=== PATIENT | male | born 1955 | race Caucasian/White ===

== ENCOUNTER → 2021-06-26 13:29 | Outpatient (BNVA) | payer SELFPAY | PROVIDERS: Visit Provider Nurse Practitioner Family | DX: M79.605 Pain in left leg (principal); M25.572 Pain in left ankle and joints of left foot | CPT/HCPCS: 73590; 73610 ==

== ENCOUNTER → 2021-07-21 11:30 | Outpatient (BNVA) | payer SELFPAY | PROVIDERS: Visit Provider Podiatrist Foot & Ankle Surgery | DX: S82.832D Other fracture of upper and lower end of left fibula, subsequent encounter for closed fracture with routine healing (principal); W00.0XXD Fall on same level due to ice and snow, subsequent encounter | CPT/HCPCS: 73610 ==

== ENCOUNTER → 2022-03-30 08:29 | Outpatient (BNVA) | payer MEDICARE, SELFPAY | PROVIDERS: PCP Family Medicine; Visit Provider Podiatrist Foot & Ankle Surgery | DX: M20.41 Other hammer toe(s) (acquired), right foot (principal) | CPT/HCPCS: 73630; 99214 ==

== ENCOUNTER 2022-10-09 06:00 | Outpatient (RCR) | payer MEDICARE, SELFPAY | END 2022-10-14 23:59 | disposition home or self-care (01) | LOC: GPT 06:00 | PROVIDERS: Visit Provider Orthopaedic Surgery | DX: Z47.89 Encounter for other orthopedic aftercare (principal) | CPT/HCPCS: 97110; 97161; 97530 ==

== ENCOUNTER 2022-10-15 06:00 | Outpatient (RCR) | payer MEDICARE, SELFPAY | END 2022-11-13 23:59 | disposition home or self-care (01) | LOC: GPT 06:00 | PROVIDERS: Visit Provider Orthopaedic Surgery | DX: Z96.611 Presence of right artificial shoulder joint (principal) | CPT/HCPCS: 97110; 97112; 97140; 97530 ==

== ENCOUNTER 2022-11-14 06:00 | Outpatient (RCR) | payer MEDICARE, SELFPAY | END 2022-12-14 23:59 | disposition home or self-care (01) | LOC: GPT 06:00 | PROVIDERS: Visit Provider Orthopaedic Surgery | DX: Z48.89 Encounter for other specified surgical aftercare (principal); Z96.611 Presence of right artificial shoulder joint | CPT/HCPCS: 97110; 97112; 97140; 97530 ==

== ENCOUNTER 2022-12-15 06:00 | Outpatient (RCR) | payer MEDICARE, SELFPAY | END 2023-01-14 23:59 | disposition home or self-care (01) | LOC: GPT 06:00 | PROVIDERS: Visit Provider Orthopaedic Surgery | DX: Z47.1 Aftercare following joint replacement surgery (principal); Z96.611 Presence of right artificial shoulder joint | CPT/HCPCS: 97110; 97112; 97530 ==

== ENCOUNTER → 2023-03-01 11:33 | Outpatient (BNVA) | payer MEDICARE, SELFPAY | PROVIDERS: Visit Provider Podiatrist Foot & Ankle Surgery | DX: M20.41 Other hammer toe(s) (acquired), right foot | CPT/HCPCS: 99214 ==

== ENCOUNTER → 2023-03-19 05:49 | Day surgery (SDC) | payer MEDICARE, SELFPAY ==
[2023-03-19 06:32] VITALS: BP 119/88; PULSE 94; RESP 16; TEMP 36.1; O2SAT 98; BMI 31.0
[2023-03-19] MEDS: sodium chloride 0.9% 1,000 ML 30 ML IV (06:54)
--- NOTE | 2023-03-19 07:05 | W.PM.OPSUD ---
Surgery/Procedure H&P Update DATE OF PROCEDURE: March 19, 2023 DATE H&P PERFORMED: 03/01/23 H&P UPDATE INFORMATION: I have reviewed H&P completed within last 30 days, I have examined patient prior to procedure, No changes to prior documentation and H&[place] is in [facility] [place] on date indicated PREOP DIAGNOSIS: Right second and third hammertoe PLANNED PROCEDURE: Operation Date: 03/19/23 08:20 Proposed Procedures p Right foot flexor tendon transfer,90843,58469,64899,m79.671,m20.41,m24.574(Right) - Suraj Copeland DPM s Right second hammertoe correction with arthrodesis and Right third hammertoe correction with arthrodesis.(Right) - Suraj Copeland DPM
--- NOTE | 2023-03-19 07:36 | P.ANESASSM_ITS ---
Pre-Anesthetic Assessment Height/Weight: Height 1.7 m Weight 89.811 kg Temp Pulse Resp BP Pulse Ox O2 Del Method 97.0 F L 94 16 119/88 98 Room Air 03/19/23 06:32 03/19/23 06:32 03/19/23 06:32 03/19/23 06:32 03/19/23 06:32 03/19/23 06:32 Preop Diagnosis: Right second and third hammertoe Operation Date: 03/19/23 08:20 Proposed Procedures p Right foot flexor tendon transfer,71016,47437,74940,m79.671,m20.41,m2 4.574(Right) - Suraj Copeland DPM s Right second hammertoe correction with arthrodesis and Right third hammertoe correction with arthrodesis.(Right) - Suraj Copeland DPM Familial anesthetic complications: PONV Was Beta Rakan taken within 24 hours: Yes Was Clonidine taken within 24 hours: N/A Last intake: Intake Last Liquid Date 03/18/23 Last Liquid Time 21:00 Last Solid Date 03/18/23 Last Solid Time 21:00 Social No alcohol and No tobacco Exam alert, oriented x 3, clear to auscultation bilaterally and regular rate & rhythm Airway Mallampati: Class I Dentition: full CV/HEM Congestive Heart Failure (4 years ago, no issues since, no chest pain episodes, able to Achieve > 4 METS w/ out symptoms) Anesthetic Plan ASA status: 3 Anesthesia: MAC Risk of > 500 ml blood loss (7ml/kg in children): No Medications/Allergies Home Medications Medication Instructions Recorded Confirmed Last Taken Type carvedilol 6.25 mg tablet 6.25 mg PO BID 06/26/21 03/18/23 03/18/23 History furosemide 20 mg tablet 40 mg PO DAILY 06/26/21 03/18/23 03/18/23 History isosorbide mononitrate 30 mg 30 mg PO DAILY 06/26/21 03/18/23 03/18/23 History tablet,extended release 24 hr potassium chloride 10 mEq 10 meq PO DAILY 06/26/21 03/18/23 03/18/23 History tablet,extended release albuterol sulfate 90 mcg/actuation 90 mcg inhalation PRN PRN 03/18/23 03/18/23 Unknown History aerosol inhaler Shortness Of Breath Or Wheezing Allergies Allergy/AdvReac Type Severity Reaction Status Date / Time No Known Allergies Allergy Verified 03/19/23 06:30 Current Medications Generic Name Dose Route Start Last Admin Trade Name Micha PRN Reason Stop Dose Admin Sodium Chloride 1,000 mls @ 30 mls/hr 03/19/23 06:30 03/19/23 06:54 Sodium Chloride 0.9% IV 03/20/23 06:29 30 mls/hr .Q24H LULA Administration PFSH Anesthesia Family History Mother CAD (coronary artery disease) Father CAD (coronary artery disease) Social History Alcohol intake: never Substance/Drug Use: never Data Anesthesia 03/19/23 06:55 BMP 03/19/23 06:55 Sodium Cancelled Potassium Cancelled Chloride Cancelled Carbon Dioxide Cancelled BUN Cancelled Creatinine Cancelled Glucose Cancelled Calcium Cancelled Cardiac Studies: No Data to Display
--- NOTE | 2023-03-19 07:46 | ECG_ITS ---
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 Measurements Intervals [place] Rate: 119 P: 0 [place]: 0 QRS: -21 QRSD: 89 T: 42 QT: 336 QTc: 473 Interpretive Statements ATRIAL FIBRILLATION WITH RAPID VENTRICULAR RESPONSE BORDERLINE LEFT AXIS DEVIATION [QRS AXIS < -20] ABNORMAL RHYTHM ECG No previous ECG available for comparison Electronically Signed On 03-19-2023 8:36:18 CDT by Magy Sandoval M.D. [email or web address]y hospitals parma medical centerTrapeze Networks/store/[id number]
[2023-03-19 08:07] LABS: Anion Gap 12.7 (5-19); Blood Urea Nitrogen 26 mg/dL (8-23); Calcium 8.7 mg/dL (8.5-10.5); Carbon Dioxide 29 mmol/L (22-29); Chloride 103 mmol/L (98-107); Glucose 105 mg/dL (65-115); Osmolality Calculated 295 mOsm/kg (285-295); Potassium 4.7 mmol/L (3.5-5.1); Sodium 140 mmol/L (136-145)
--- NOTE | 2023-03-19 08:23 | ECG_ITS ---
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 Measurements Intervals [place] Rate: 84 P: 0 [place]: 0 QRS: -30 QRSD: 80 T: -10 QT: 349 QTc: 414 Interpretive Statements ATRIAL FIBRILLATION INFERIOR MYOCARDIAL INFARCTION , PROBABLY OLD [40+ ms Q WAVE AND/OR ST/T ABNORMALITY IN II/aVF] Compared to ECG 03/19/2023 07:46:22 Myocardial infarct finding now present Electronically Signed On 03-19-2023 8:37:06 CDT by Magy Sandoval M.D. [email or web address] Pawnmerit health rankinMagneGas Corporationdiley ridge medical center.PictureMenu/store/[id number]
--- NOTE | 2023-03-19 08:55 | PC.NURSE ---
after Ekg obtained Dr. Lopez talked with heart doctor and has decided to hold off on surgery today until patient is able to see economic development coordinator for release. Dr. Copeland and Dr. Lopez both explained situation to patient. Patient and family understood and will be making an appt for the economic development coordinator.
== END ==
PROVIDERS: PCP Family Medicine; Visit Provider Podiatrist Foot & Ankle Surgery
PROC: (CPT 28285; 2023-03-19 08:10)
DX: M20.41 Other hammer toe(s) (acquired), right foot (principal); Z53.8 Procedure and treatment not carried out for other reasons
CPT/HCPCS: 36415; 80048; 93005; J2704; J3010; J7030

== ENCOUNTER → 2023-04-07 10:19 | Outpatient (BNVA) | payer MEDICARE, SELFPAY | PROVIDERS: PCP Family Medicine; Referring Provider Podiatrist Foot & Ankle Surgery; Visit Provider Internal Medicine Cardiovascular Disease | DX: Z01.818 Encounter for other preprocedural examination (principal); M20.41 Other hammer toe(s) (acquired), right foot; I11.0 Hypertensive heart disease with heart failure; I50.9 Heart failure, unspecified; I48.91 Unspecified atrial fibrillation; Z79.01 Long term (current) use of anticoagulants | CPT/HCPCS: 99204 ==

== ENCOUNTER 2023-04-13 09:45 | Outpatient (CLI) | payer MEDICARE, SELFPAY ==
--- NOTE | 2023-04-13 10:00 | USCV_ITS ---
Amrit Tomlin Age: 68 Gender: M : 1955 Exam Date: 04/13/2023 09:59 Ordering Phys: Magy Sandoval MD ([email or web address]) Technologist: Laurie Carrillo [place] [facility] [place]: FAIRLY NEW ONSET AFIB BP: 130 / 90 HR: 112 Rhythm: Atrial fibrillation Technical Quality: Adequate MEASUREMENTS (Male / Female) Normal Values 2D ECHO LV Diastolic Diameter PLAX 4.0 cm 4.2 - 5.9 / 3.9 - 5.3 cm LV Systolic Diameter PLAX 3.2 cm LV Chamber Size 4.8 cm IVS Diastolic Thickness 1.0 cm 0.6 - 1.0 / 0.6 - 0.9 cm IVS Systolic Thickness 1.5 cm LVPW Diastolic Thickness 1.6 cm 0.6 - 1.0 / 0.6 - 0.9 cm LVPW Systolic Thickness 1.6 cm RV Chamber Size 4.2 cm LVOT Diameter 2.0 cm LV Ejection Fraction 2D Teich 41.7 % LV Ejection Fraction MOD 2C 49.9 % LV Ejection Fraction 2C AL 51.3 % LA Diameter 4.5 cm LA Width 4.8 cm LA Height 5.1 cm RA Width 5.0 cm RA Height 5.5 cm Aorta at Sinotubular Diameter 3.5 cm IVC Diameter 1.4 cm M-MODE Aortic Annulus Diameter 3.9 cm LA Ao Ratio MM 1.2 MV E Point Septal Separation 1.1 cm DOPPLER AV Peak Velocity 97.0 cm/s LVOT Peak Velocity 54.7 cm/s AV Area Cont Eq vti 1.8 cm squared AV Area Cont Eq pk 1.8 cm squared MV Area PHT 5.0 cm squared MV E' Velocity 53.5 cm/s Mitral E to MV E' Ratio 6.9 Mitral E to LV E' Lateral Ratio 6.3 Mitral E to LV E' Septal Ratio 7.7 TR Peak Velocity 213.7 cm/s TR Peak Gradient 18.3 mmHg TR Mean Velocity 175.9 cm/s TR Mean Gradient 14.0 mmHg TR Velocity Time Integral 60.9 cm TV Peak E Velocity 46.0 cm/s Right Atrial Pressure 3.0 mmHg Pulmonary Artery Systolic Pressu 21.3 mmHg RV Acceleration Time 0.1 s RV Ejection Time 0.4 s RV AcT/ET 0.3 FINDINGS Left Ventricle Normal left ventricular size, systolic function and wall thickness, with no regional wall motion abnormalities. Left ventricular ejection fraction is estimated at 55 %. Diastolic dysfunction was not assessed due to atrial fibrillation. Right Ventricle Normal right ventricular size and systolic function. Right Atrium Normal right atrial size. Left Atrium Moderately dilated Mitral Valve Structurally normal mitral valve. There is a moderate mitral regurgitation with central jet. Aortic Valve Thickened aortic valve. No aortic valve stenosis. Trace aortic valve regurgitation. Tricuspid Valve Structurally normal tricuspid valve. Trace tricuspid valve regurgitation. Pulmonic Valve Pulmonic valve not well visualized. Trace pulmonary valve regurgitation. Pericardium No pericardial effusion. Aorta Normal size aortic root and proximal ascending aorta. IVC Normal IVC dimension with >50% respiratory change of the inferior vena cava. CONCLUSIONS Atrial fibrillation during the study. Normal left ventricle function. No LVH. Estimated LVEF normal at 55%. Moderate mitral regurgitation with a central jet. Normal right heart and pulmonary pressure. David Edgar MD (Electronically Signed) Final Date: 13 April 2023 15:16 S
== END 2023-04-13 09:46 | disposition home or self-care (01) ==
PROVIDERS: PCP Family Medicine; Visit Provider Internal Medicine Cardiovascular Disease
DX: Z01.818 Encounter for other preprocedural examination (principal); I48.91 Unspecified atrial fibrillation; I50.9 Heart failure, unspecified; I34.0 Nonrheumatic mitral (valve) insufficiency
CPT/HCPCS: 93306; 99204

== ENCOUNTER → 2023-05-19 13:22 | Outpatient (BNVA) | payer MEDICARE, SELFPAY | PROVIDERS: PCP Family Medicine; Visit Provider Podiatrist Foot & Ankle Surgery | DX: Z01.818 Encounter for other preprocedural examination (principal); M79.671 Pain in right foot; M20.41 Other hammer toe(s) (acquired), right foot | CPT/HCPCS: 99213 ==

== ENCOUNTER 2023-05-28 06:23 | Day surgery (SDC) | payer MEDICARE, SELFPAY ==
[2023-05-28] VITALS (7 sets, daily range): BP systolic 94–110; BP diastolic 65–86; PULSE 70–90; RESP 15–18; TEMP 36.1–36.4; O2SAT 96–98; BMI 31.0
--- NOTE | 2023-05-28 | XR_ITS ---
WS: [id number] Exam: XR foot RT 2V [id number] Date/Time of Exam: 05/28/2023 12:00 AM Reason For Exam: OR PICS Intraoperative AP and lateral images of the RIGHT toes are submitted. Surgical wires overlie the long axis of the second and third digits. Images were were obtained for in traoperative purposes.
--- NOTE | 2023-05-28 06:30 | ECG_ITS ---
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 Measurements Intervals [place] Rate: 89 P: 0 [place]: 0 QRS: -26 QRSD: 89 T: 27 QT: 383 QTc: 468 Interpretive Statements ATRIAL FIBRILLATION BORDERLINE LEFT AXIS DEVIATION [QRS AXIS < -20] ABNORMAL RHYTHM ECG Compared to ECG 03/19/2023 08:23:52 Myocardial infarct finding no longer present Electronically Signed On 05-28-2023 13:49:17 ORACLE MANAGER by Bronson Brady M.D. [email or web address]'s hospital of columbusWorkThink/store/[id number]
[2023-05-28] MEDS: scopolamine 1.5 Patch 1 PATCH TRANSDERMA (07:11)
[2023-05-28] MEDS: sodium chloride 0.9% 1,000 ML 30 ML IV (07:16)
--- NOTE | 2023-05-28 07:19 | ANES.PREANE2 ---
Pre-Anesthetic Assessment Height/Weight: Height 1.7 m Weight 89.811 kg Temp Pulse Resp BP Pulse Ox O2 Del Method 97 F L 87 18 100/80 97 Room Air 05/28/23 06:44 05/28/23 06:44 05/28/23 06:44 05/28/23 06:44 05/28/23 06:44 05/28/23 06:53 Preop Diagnosis: Right second and third hammertoe deformity Operation Date: 05/28/23 08:05 Proposed Procedures p Deep tendon transfer right foot and Right second hammertoe correction 07942,24681,M79.671,M20.41(Right) - Suraj Copeland DPM s Hammertoe Correction(Right) - Suraj Copeland DPM Last intake: Intake Last Liquid Date 05/27/23 Last Liquid Time 22:30 Last Solid Date 05/27/23 Last Solid Time 22:30 Social Tobacco (2 cig/day) Exam alert, oriented x 3 and clear to auscultation bilaterally Heart is irregular with no other ausculatated findings Airway Submandibular: within normal limits Cervical ROM: within normal limits Mallampati: Class II Pulmonary Chronic Obstructive Pulmonary Disease CV/HEM Atrial Fibrillation, Arrythmia, Congestive Heart Failure and Hypertension GI None reported Metabolic None reported Neuropsych None reported Anesthetic Plan ASA status: 3 Anesthesia: General Medications/Allergies Home Medications Medication Instructions Recorded Confirmed Last Taken Type isosorbide mononitrate 30 mg 30 mg PO DAILY 06/26/21 05/27/23 05/27/23 History tablet,extended release 24 hr potassium chloride 10 mEq 10 meq PO DAILY 06/26/21 05/27/23 05/27/23 History tablet,extended release albuterol sulfate 90 mcg/actuation 90 mcg inhalation PRN PRN 03/18/23 05/27/23 05/25/23 History aerosol inhaler Shortness Of Breath Or Wheezing apixaban 5 mg tablet (Eliquis) 5 mg PO BID #60 tabs 04/07/23 05/27/23 05/23/23 Rx carvedilol 12.5 mg tablet 12.5 mg PO BID #180 tabs 04/07/23 05/27/23 05/28/23 Rx furosemide 40 mg tablet 40 mg PO DAILY 04/07/23 05/27/23 05/27/23 History Allergies Allergy/AdvReac Type Severity Reaction Status Date / Time No Known Allergies Allergy Verified 05/27/23 14:15 Current Medications Generic Name Dose Route Start Last Admin Trade Name Micha PRN Reason Stop Dose Admin Sodium Chloride 1,000 mls @ 30 mls/hr 05/28/23 06:30 05/28/23 07:16 Sodium Chloride 0.9% IV 05/29/23 06:29 30 mls/hr .Q24H LULA Administration PFSH Anesthesia Medical History HTN (hypertension) Atrial fibrillation Congestive heart failure Surgical History History of knee surgery Family History Mother CAD (coronary artery disease) Father CAD (coronary artery disease) Social History Alcohol intake: never Substance/Drug Use: never Data Anesthesia Cardiac Studies: Echocardiogram 04/13/23
--- NOTE | 2023-05-28 08:08 | P.HPUD_ITS ---
Surgery/Procedure H&P Update DATE OF PROCEDURE: May 28, 2023 DATE H&P PERFORMED: 05/19/23 H&P UPDATE INFORMATION: I have reviewed H&P completed within last 30 days, I have examined patient prior to procedure, No changes to prior documentation and H&P is in [facility] [place] on date indicated PREOP DIAGNOSIS: Right second and third hammertoe deformity PLANNED PROCEDURE: Operation Date: 05/28/23 08:05 Proposed Procedures p Deep tendon transfer right foot and Right second hammertoe correction 55071,83839,M79.671,M20.41(Right) - Suarj Copeland DPM s Hammertoe Correction(Right) - Suraj Copeland DPM
[2023-05-28] MEDS: ceFAZolin 2,000 MG in sodium chloride 0.9% (plus) 50 ML 100 MG IV (08:19)
[2023-05-28] MEDS: BUPivacaine liposome 13.3 mg/mL SDV 10 mL 133 MG INFILTRATI (08:36)
[2023-05-28] MEDS: BUPivacaine 0.5% INJ 30 mL INJECTION (08:37)
--- NOTE | 2023-05-28 08:59 | P.OP_ITS ---
Operative Report Date of procedure: May 28, 2023 Pre-op diagnosis: Tendon contracture right foot. Right second hammertoe deformity. Right third hammertoe deformity. Right foot pain. Post-op diagnosis: Tendon contracture right foot. Right second hammertoe deformity. Right third hammertoe deformity. Right foot pain. Post-op findings: None Procedure done: Deep tendon transfer right foot. CPT code 22779 Right second hammertoe correction. CPT code 96291 Right third hammertoe correction. CPT code 60530 Implants: 0.062 K wire x 2, 4-0 Vicryl, 4-0 nylon Specimens removed/disposition: 0 Pathology: None Surgeon: Suraj Copeland DPM Cable Installation Technician: Gary Estimated blood loss: 2 20 IV fluids: 0 Urine output: 0 Complications: None Brief History: 68-year-old male presents with right second and third hammertoe pain. On exam h e has nonreducible hammertoe deformities of right second and third that are painful to palpation. Sagittal plane dominance noted to the right second and third hammertoes. On x-ray right foot 3 views he has no acute fracture dislocation, gunbarrel sign at the right second and third toes. Has failed conservative management over the course of several years as noted in HPI. He has failed conservative management consisting of but not limited to activity modifications, padding and spacing as well as toe sleeves, extra-depth and accommodative shoes, anti-inflammatories. I reviewed at length with the patient, the risks, potential complications, benefits, alternatives, expectations, and typical outcomes associated with the surgery. The risks and potential complications were explained in detail, including but not limited to infection, wound dehiscence or soft tissue complications, bleeding and hematoma, chronic edema, neuritis or nerve damage producing numbness or chronic pain, CRPS, failure to relieve pain or worsening pain, thick / painful / unsightly scar, limited motion / stiffness, malposition, delayed union, malunion, or nonunion, fracture, reaction to implants, anesthetic complications, venous thromboembolism, and deformity recurrence. I discussed the notion of no regrets with the patient as it pertains to complications and outcomes. The patient seemed to understand the nature of the proposed care and required convalescence. They asked appropriate questions, answered to their satisfaction. They are aware no guarantees can be made as to a satisfactory outcome and they u nderstand there may be other possible unforeseen complications or outcomes not listed here that will be treated accordingly if they arise. There were no written or implied guarantees given to the patient. They gave informed consent to proceed. Procedure: Under mild sedation the patient was brought to the operating room and remained on the gurney in supine position. A timeout was performed. Anesthesia was then administered by the anesthesia service. Local anesthesia was injected by myself consisting of 20 cc of 0.5% Marcaine plain and a right second and third ray block fashion with an additional 20 cc of Exparel infiltrated in the grid like fashion subcutaneously at the right forefoot. Well-padded pneumatic tourniquet was applied to the right ankle. The right lower extremity was scrubbed, prepped and draped utilizing normal aseptic technique. Right foot was exanguinated with an Esmarch bandage and the tourniquet was then inflated to 250 mmHg. Attention was directed to the right forefoot where flexor tendon contracture was appreciated at the right forefoot with sagittal plane dominant hammertoe contractures of the second and third toe. Attention was directed to the second and third toe at the level of the proximal interphalangeal joint linear longitudinal incision was performed through skin with dissection carried down through subcutaneous tissue to the layer of extensor tendon which was transected at the level of the proximal to phalangeal joint sharply at the second and third toe. The head of the proximal phalanx and the base of the intermediate phalanx were transected with a sagittal saw of the second and third toe. The arthroplasty was then distracted and the flexor digitorum longus tendon of the second and third toe was transected at its most distal appreciable level and split longitudinally and rerouted both medially and laterally circumferentially around the second and third proximal phalanx and held under tension until the second and third toe was rectus this was then secured into 2 and at the dorsum aspect of the second and third proximal phalanx diaphysis with 4-0 nylon. The incisions were then irrigated with copious amounts of sterile skin solution. Arthrodesis of the proximal phalangeal joint of the right second third toe was then achieved with a 0.062 K wire not crossing the metatarsal phalangeal joint. Intraoperative fluoroscopy confirmed AP, oblique and lateral views to have intramedullary placement of the distal, intermediate and proximal phalanx of the right second and third toes and the hardware did not violate the metatarsal phalangeal joints respectively. Excess K wire was trimmed and covered with a Sage ball. Incision sites were then irrigated with saline solution and closed in a layered fashion. Extensor tendons of the second and third toes were reapproximated and and with 4-0 Vicryl, subcutaneous tissue reapproximated with 4-0 Vicryl and skin with 4-0 nylon. Both incisions were then dressed with Adaptic, sterile 4 x 4's, Kerlix and Nghia wrap followed by application of a cam boot to the right lower extremity. The tourniquet was then deflated and a prompt hyperemic response was noted to the distal digits of the right foot. Patient tolerated the procedure and anesthesia well and was transferred to the PACU with vital signs stable and vascular status intact. Following a period of postoperative monitoring he will be discharged home, he will be weightbearing as tolerated below threshold of pain with a cam boot at all times he is to decrease his activity overall and to elevate right foot while resting. Was given at home care instructions, scheduled follow-up and my cell phone number to contact with any postoperative questions or concerns.
--- NOTE | 2023-05-28 09:00 | W.PM.BPON ---
Date of Procedure: 05/28/23 Surgeon: Suraj Copeland DPM Remote Control Assembler(s): Gary Procedure(s) performed: Right second and third flexor tendon transfer with hammertoe correction. Findings of the procedure(s): None Estimated blood loss: 2 mL Specimen(s) removed: None Post-operative diagnosis: Right foot flexor tendon contracture and second and third hammertoe deformity.
--- NOTE | 2023-05-28 09:50 | ANE.PACU2 ---
Inpatient post-anesthesia follow up: Vital signs: Temperature 97.6 F Pulse Rate 72 Respiratory Rate 16 Blood Pressure 108/68 Pulse Oximetry 97 Oxygen Delivery Me thod Room Air Oxygen Flow Rate 6 Fraction of Inspir ed Oxygen Hydration adequate: Yes Nausea and vomiting: No Pain level: 1 Mental status: Baseline
[2023-05-28 10:12] LABS: Basophils # 0.1 10^3/uL (0.0-0.1); Basophils % 1.1 %; Eosinophils # 0.3 10^3/uL (0.0-0.8); Eosinophils % 4.4 %; Hematocrit 43.2 % (37-53); Lymphocytes # 2.3 10^3/uL (0.8-4.8); Lymphocytes % 36.3 %; Mean Corpuscular HGB Conc 32.2 g/dL (30-55); Mean Corpuscular Hemoglobin 27.6 pg (27-33); Mean Corpuscular Volume 85.7 fl (82-101); Mean Platelet Volume 11.9 fL (7.4-10.4); Monocytes # 0.6 10^3/uL (0.2-0.9); Monocytes % 9.8 %; Neutrophils # 3.05 10^3/uL (1.8-7.7); Neutrophils % 48.1 %; Nucleated Red Blood Cells % 0 %; Platelet Count 227 10^3/cmm (157-399); Red Blood Count 5.04 10^6/uL (3.85-5.65); Red Cell Distribution Width 15.8 % (12.1-15.1); White Blood Count 6.34 10^3/uL (3.29-11.43)
[2023-05-28 10:24] LABS: Alanine Aminotransferase 19 U/L (0-41); Albumin Level 4.5 g/dL (3.5-5.2); Alkaline Phosphatase 47 U/L (40-130); Anion Gap 14.2 (5-19); Aspartate Amino Transferase 20 U/L (0-40); Blood Urea Nitrogen 26 mg/dL (8-23); Calcium 9.1 mg/dL (8.5-10.5); Carbon Dioxide 27 mmol/L (22-29); Chloride 101 mmol/L (98-107); Glomerular Filtration Rate 60.6 mL/min (90-130); Glucose 106 mg/dL (65-115); Osmolality Calculated 291 mOsm/kg (285-295); Potassium 4.2 mmol/L (3.5-5.1); Sodium 138 mmol/L (136-145); Total Bilirubin 0.3 mg/dL (0.15-1.2); Total Protein 7.5 g/dL (6.6-8.7)
== END 2023-05-28 09:56 | disposition home or self-care (01) ==
PROVIDERS: Student in an Organized Health Care Education/Training Program; PCP Family Medicine; Visit Provider Podiatrist Foot & Ankle Surgery
PROC: (CPT 27691; principal; 2023-05-28 07:55)
PROC: (CPT 28285; 2023-05-28 07:55)
DX: M24.574 Contracture, right foot (principal); M20.41 Other hammer toe(s) (acquired), right foot; F17.210 Nicotine dependence, cigarettes, uncomplicated; J44.9 Chronic obstructive pulmonary disease, unspecified; I48.91 Unspecified atrial fibrillation; I11.0 Hypertensive heart disease with heart failure; I50.9 Heart failure, unspecified
CPT/HCPCS: 27691; 28285 ×2; 36415; 73620; 76000; 80053; 85025; 93005; C1713; C9290; J0690; J2371; J2704; J3010; J3490; J7030

== ENCOUNTER → 2023-06-10 15:42 | Outpatient (BNVA) | payer MEDICARE, SELFPAY | PROVIDERS: Visit Provider Podiatrist Foot & Ankle Surgery | DX: Z98.890 Other specified postprocedural states (principal) | CPT/HCPCS: 73630; 99024 ==

== ENCOUNTER → 2023-06-14 11:18 | Outpatient (BNVA) | payer MEDICARE, SELFPAY | PROVIDERS: Visit Provider Internal Medicine Cardiovascular Disease | DX: I48.0 Paroxysmal atrial fibrillation (principal); I11.0 Hypertensive heart disease with heart failure; I50.30 Unspecified diastolic (congestive) heart failure; I42.8 Other cardiomyopathies; Z79.01 Long term (current) use of anticoagulants | CPT/HCPCS: 99214 ==

== ENCOUNTER → 2023-06-17 09:00 | Outpatient (BNVA) | payer MEDICARE, SELFPAY | PROVIDERS: Visit Provider Internal Medicine Cardiovascular Disease | DX: I48.91 Unspecified atrial fibrillation (principal); I49.3 Ventricular premature depolarization; I47.29 Other ventricular tachycardia | CPT/HCPCS: 93246 ==

== ENCOUNTER → 2023-06-24 13:12 | Outpatient (BNVA) | payer MEDICARE, SELFPAY | PROVIDERS: PCP Family Medicine; Visit Provider Podiatrist Foot & Ankle Surgery | DX: Z98.890 Other specified postprocedural states (principal) | CPT/HCPCS: 73630; 99024 ==

== ENCOUNTER → 2023-06-29 15:20 | Outpatient (BNVA) | payer MEDICARE, SELFPAY | PROVIDERS: PCP Family Medicine; Visit Provider Podiatrist Foot & Ankle Surgery | DX: Z98.890 Other specified postprocedural states (principal); L53.9 Erythematous condition, unspecified; T84.7XXA Infection and inflammatory reaction due to other internal orthopedic prosthetic devices, implants and grafts, initial encounter; X58.XXXA Exposure to other specified factors, initial encounter; Z87.39 Personal history of other diseases of the musculoskeletal system and connective tissue | CPT/HCPCS: 73630; 87070; 87075; 87077; 87186; 87205; 99024 ==

== ENCOUNTER → 2023-07-08 13:47 | Outpatient (BNVA) | payer MEDICARE, SELFPAY | PROVIDERS: PCP Family Medicine; Visit Provider Podiatrist Foot & Ankle Surgery | DX: Z98.890 Other specified postprocedural states (principal) | CPT/HCPCS: 73630; 99024 ==

== ENCOUNTER → 2023-08-03 11:57 | Outpatient (BNVA) | payer MEDICARE, SELFPAY | PROVIDERS: PCP Family Medicine; Visit Provider Internal Medicine Cardiovascular Disease | DX: R06.02 Shortness of breath (principal); N18.9 Chronic kidney disease, unspecified; E78.5 Hyperlipidemia, unspecified; Z98.890 Other specified postprocedural states; I48.0 Paroxysmal atrial fibrillation; I11.0 Hypertensive heart disease with heart failure; I50.30 Unspecified diastolic (congestive) heart failure; Z79.899 Other long term (current) drug therapy; R94.31 Abnormal electrocardiogram [ECG] [EKG] | CPT/HCPCS: 73630; 80048; 80076; 83880; 84443; 93005; 99024; 99214 ==

== ENCOUNTER → 2023-08-24 09:31 | Outpatient (BNVA) | payer MEDICARE, SELFPAY | PROVIDERS: PCP Family Medicine; Visit Provider Internal Medicine Cardiovascular Disease | DX: I48.0 Paroxysmal atrial fibrillation (principal); Z79.899 Other long term (current) drug therapy | CPT/HCPCS: 93005 ==

== ENCOUNTER 2023-09-10 10:53 | Day surgery (SDC) | payer MEDICARE, SELFPAY ==
[2023-09-10 11:27] VITALS: BP 129/95; PULSE 74; RESP 18; TEMP 36.1; O2SAT 96; BMI 31.3
--- NOTE | 2023-09-10 11:39 | ECG_ITS ---
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 Measurements Intervals [place] Rate: 75 P: 0 [place]: 0 QRS: -19 QRSD: 90 T: -17 QT: 401 QTc: 448 Interpretive Statements ATRIAL FIBRILLATION WITH ABERRANT CONDUCTION OR VENTRICULAR PREMATURE COMPLEXES MODERATE ST DEPRESSION [0.05+ mV ST DEPRESSION] Diffuse nonspecific T wave changes INTERPRETATION BASED ON A DEFAULT AGE OF 40 YEARS Compared to ECG 08/24/2023 09:36:03 Ventricular premature complex(es) now present Aberrant conduction of supraventricular beat(s) now present ST (T wave) deviation now present Atrial flutter no longer present Electronically Signed On 09-11-2023 19:50:58 CDT by Bronson Brady M.D. [id number]
[2023-09-10] MEDS: sodium chloride 0.9% 1,000 ML 30 ML IV (11:49)
--- NOTE | 2023-09-10 12:08 | P.HP_ITS ---
Providers/Chief Complaint Admitting Physician: SOL Brady MD Primary Care Provider: Eliecer Gaona Chief Complaint: I48.0 History of Present Illness Amrit Tomlin is a 68 year old male with a history of hypertension, atrial fibrillation, COPD and heart failure is here for a scheduled cardioversion. The patient been on oral anticoagulation with last more than 6 weeks. He denies any chest pain or palpitations. No TIAs or Amaurosis. Has been compliant with the medications. Review of Systems Narrative: CONSTITUTIONAL: No fever or chills. Has the feeling of fatiue / weakness. EYES: No blurring of vision or other visual disturbances lately. ENT: No hoarseness of voice, auditory disturbances or sore throat. CARDIOVASCULAR: As mentioned above. RESPIRATORY: No significant cough. GASTROINTESTINAL: No hematemesis or melena. GENITOURINARY: No dysuria or hematuria. INTEGUMENTARY: No skin rashes or history of skin cancer. NEURO: No transient ischemic attacks or amaurosis. PSYCHIATRIC: No history of psychosis or major depression. HEMATOLOGIC: No bleeding disorders or significant anemia. ENDOCRINE: No history of polyuria or polydipsia. MUSCULOSKELETAL: No recent joint pain or swelling. ALLERGY/IMMUNOLOGY: As mentioned above. Medications/Allergies Home Medications Medication Instructions Recorded Confirmed Last Taken Type isosorbide mononitrate 30 mg 30 mg PO DAILY 06/26/21 09/10/23 09/08/23 History tablet,extended release 24 hr potassium chloride 10 mEq 10 meq PO DAILY 06/26/21 09/10/23 09/08/23 History tablet,extended release albuterol sulfate 90 mcg/actuation 90 mcg inhalation PRN PRN 03/18/23 09/10/23 09/10/23 History aerosol inhaler Shortness Of Breath Or Wheezing apixaban 5 mg tablet (Eliquis) 5 mg PO BID #60 tabs 04/07/23 09/10/23 09/08/23 Rx furosemide 40 mg tablet 40 mg PO DAILY 04/07/23 09/10/23 09/08/23 History toe alignment splint #1 ea 06/24/23 09/10/23 09/08/23 Rx carvedilol 25 mg tablet 25 mg PO BID #180 tabs 07/20/23 09/10/23 09/08/23 Rx amiodarone 400 mg tablet 200 mg PO DAILY 09/08/23 09/10/23 09/08/23 History Allergies Allergy/AdvReac Type Severity Reaction Status Date / Time No Known Allergies Allergy Verified 09/08/23 12:09 PFSH Acute PFSH: Medical History HTN (hypertension) Atrial fibrillation Congestive heart failure Surgical History History of knee surgery Family History Mother CAD (coronary artery disease) Father CAD (coronary artery disease) Social History Alcohol intake: never Substance/Drug Use: never Vitals/I&O/Wt Last Vital Signs Temp 96.9 F L 09/10/23 11:27 Pulse 74 09/10/23 11:27 Resp 18 09/10/23 11:27 BP 129/95 09/10/23 11:27 Pulse Ox 96 09/10/23 11:27 O2 Del Method Room Air 09/10/23 11:27 Weight last 48 hrs Weight 200 lb Physical Exam Narrative: GENERAL: The patient is alert and oriented times three. Not in any acute distress. HEENT: No significant pallor, icterus or lymphadenopathy.Oral cavity: There are no mucous membrane lesions. NECK: Trachea appears to be central. No masses noted. No JVD or thyromegaly appreciated. RESPIRATORY: Chest is symmetrical. No intercostals muscle retraction or any accessory muscle activation. There is no chest wall tenderness. Breath sounds are heard bilaterally. No rales or rhonchi heard. No evidence of any consolidation. BREASTS: Deferred. HEART: The heart sounds are normal. No S3 or S4. No significant murmurs. No pericardial rub ABDOMEN: No vessel pulsations or distention. No tenderness. No organomegaly appreciated. Bowel sounds are normally heard. : Deferred. RECTAL: Deferred. LYMPHATIC: No lymphadenopathy noted in the neck. EXTREMITIES: No edema or cyanosis. No clubbing. MUSCULOSKELETAL: No acute joint deformities or swelling SKIN: There are no significant rashes or ecchymosis NEUROPSYCHIATRIC: The patient is alert and oriented x3. Appears to be in a good mood. No tremors or rigidity noted. A&P Assessment and plan (1) Heart failure with improved ejection fraction (HFimpEF): Patient currently has no evidence of any decompensated heart failure. The symptoms are stable. Compliance to medication is appropriate. Advised to continue on the current medications for the time being. In the event of developing any unusual shortness of breath or any new symptoms, advised to contact our office (2) Atrial fibrillation: P is on long-term oral anticaogulation. THis may be continued Qualifiers: Atrial fibrillation type: paroxysmal Qualified Code(s): I48.0 - Paroxysmal atrial fibrillation (3) HTN (hypertension): Since the blood pressure is in the normal range, patient may not require any medication changes at this time. Advised to continue on the current measures. Qualifiers: Hypertension type: primary hypertension Qualified Code(s): I10 - Essential (primary) hypertension Plan In view of the patient symptomatic atrial fibrillation, for further management of his condition, electrical cardioversion was recommended. The risk of malignant ventricular arrhythmia, stroke, aspiration, heart blocks and other concomitant complications were explained in detail. Patient understood this well and consented to proceed. All the patient's questions were answered Attestations Medical Necessity Statement*: Possible discharge home after the cardioversion Coding Level of Care Code 56189 Diagnoses Heart failure with improved ejection fraction (HFimpEF) I50.32 Paroxysmal atrial fibrillation I48.0 Atrial fibrillation type: paroxysmal Primary hypertension I10 Hypertension type: primary hypertension
--- NOTE | 2023-09-10 12:11 | W.PM.OPSUD ---
Surgery/Procedure H&P Update DATE OF PROCEDURE: September 10, 2023 DATE H&P PERFORMED: 09/10/23 H&P UPDATE INFORMATION: I have reviewed H&P completed within last 30 days, I have examined patient prior to procedure and No changes to prior documentation PREOP DIAGNOSIS: Symptomatic atrial fibrillation PRIMARY INDICATION FOR PROCEDURE: Congestive heart failure with improved ejection fraction, symptomatic atrial fibrillation PLANNED PROCEDURE: Operation Date: 09/10/23 12:00 Proposed Procedures p Cardioversion 68012, I48.0(Not Applicable) - Bronson Brady MD
[2023-09-10 12:26] VITALS: BP 107/76; PULSE 77; RESP 15; TEMP 36.5; O2SAT 98
[2023-09-10 12:50] VITALS: BP 100/81; PULSE 68; RESP 16; O2SAT 99
--- NOTE | 2023-09-10 12:53 | ECG_ITS ---
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 Measurements Intervals [place] Rate: 66 P: 0 GA: 0 QRS: -20 QRSD: 84 T: -32 QT: 416 QTc: 437 Interpretive Statements ATRIAL FIBRILLATION MINIMAL ST DEPRESSION [0.025+ mV ST DEPRESSION] ABNORMAL RHYTHM ECG Compared to ECG 08/24/2023 09:36:03 ST (T wave) deviation now present Atrial flutter no longer present Electronically Signed On 09-11-2023 19:53:36 CDT by Bronson Brady M.D. [email or web address], [id number]
--- NOTE | 2023-09-10 13:10 | ANE.PACU2 ---
Inpatient post-anesthesia follow up: Airway intact: Yes Vital signs: Temperature 97.7 F Pulse Rate 68 Respiratory Rate 16 Blood Pressure 100/81 Pulse Oximetry 99 Oxygen Delivery Me thod Room Air Oxygen Flow Rate Fraction of Inspir ed Oxygen Hydration adequate: Yes Nausea and vomiting: No Pain level: 1 Mental status: Baseline
--- NOTE | 2023-09-10 16:31 | PM.OP ---
Operative Report Date of procedure: September 10, 2023 Surgeon: Bronson Brady MD Procedure: Electrical cardioversion report Preprocedure diagnoses: Atrial fibrillation/hypertension. Brief history: This is a 68-year-old white male with history of hypertension, congestive heart failure, recently diagnosed atrial fibrillation. The patient was complaining of progressive decline in his functional status because of the arrhythmia. His EKG showed features of coarse atrial fibrillation. Patient was started on amiodarone as an outpatient. He was brought to the hospital for elective cardioversion . Location of the procedure: Outpatient surgery Electrode application: Anteroposterior Electrical energy applied: 100, 120, 150 and 200 J of biphasic current Number of shocks: Total of 4 Final rhythm: Atrial fibrillation with no response to the electrical cardioversion Final blood pressure: 116/70 Complications: None Recommendation(s): Patient will be referred to electrophysiology to consider catheter-based options. This was discussed with the patient and his family in detail which they understood well and agreed to proceed
== END 2023-09-10 13:12 | disposition home or self-care (01) ==
PROVIDERS: PCP Family Medicine; Visit Provider Internal Medicine Cardiovascular Disease
PROC: 5A2204Z Restoration of Cardiac Rhythm, Single (ICD-10-PCS; principal; 2023-09-10 12:00)
DX: I48.91 Unspecified atrial fibrillation (principal); I11.0 Hypertensive heart disease with heart failure; I50.32 Chronic diastolic (congestive) heart failure; J44.9 Chronic obstructive pulmonary disease, unspecified; Z79.01 Long term (current) use of anticoagulants; I48.0 Paroxysmal atrial fibrillation
CPT/HCPCS: 92960; 93005; J2704; J7030

== ENCOUNTER 2023-10-29 10:27 | Day surgery (SDC) | payer MEDICARE, SELFPAY ==
--- NOTE | 2023-10-29 10:33 | ECG_ITS ---
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 Measurements Intervals [place] Rate: 74 P: 0 UT: 0 QRS: -21 QRSD: 96 T: 59 QT: 405 QTc: 450 Interpretive Statements ATRIAL FIBRILLATION BORDERLINE LEFT AXIS DEVIATION [QRS AXIS < -20] ABNORMAL RHYTHM ECG Compared to ECG 09/10/2023 12:53:19 ST (T wave) deviation no longer present Electronically Signed On 10-29-2023 19:15:56 CDT by Bronson Brady M.D. [id number]
[2023-10-29 10:51] VITALS: BP 139/107; PULSE 81; RESP 18; TEMP 36.2; O2SAT 93; BMI 31.0
[2023-10-29] MEDS: sodium chloride 0.9% 1,000 ML 30 ML IV (11:03)
--- NOTE | 2023-10-29 11:04 | ANES.PAUD2 ---
Pre-Anesthetic Update Pre-Anesthetic Assessment: Date of Surgery/Procedure: 10/29/23 Proposed Procedure: Operation Date: 10/29/23 12:00 Proposed Procedures p Cardioversion 25408, I48.0(Not Applicable) - Bronson Brady MD Any changes to Pre-Anesthetic Assessment?: No Last Intake: Intake Last Liquid Date 10/28/23 Last Liquid Time 21:30 Last Solid Date 10/28/23 Last Solid Time 21:30 Vitals: Temperature 97.2 F L 10/29/23 10:51 Temperature Source Temporal Artery S can 10/29/23 10:51 Pulse Rate 81 10/29/23 10:51 Respiratory Rate 18 10/29/23 10:51 Blood Pressure 139/107 10/29/23 10:51 Blood Pressure Madeleine n 117 10/29/23 10:51 Pulse Oximetry 93 10/29/23 10:51 Oxygen Delivery Me thod Room Air 10/29/23 10:51 Cardiac Studies: Echocardiogram 04/13/23 Holter Monitor 06/17/23
--- NOTE | 2023-10-29 11:05 | P.ANESASSM_ITS ---
Pre-Anesthetic Assessment Height/Weight: Height 1.7 m Weight 89.902 kg Temp Pulse Resp BP Pulse Ox O2 Del Method 97.2 F L 81 18 139/107 93 Room Air 10/29/23 10:51 10/29/23 10:51 10/29/23 10:51 10/29/23 10:51 10/29/23 10:51 10/29/23 10:51 Operation Date: 10/29/23 12:00 Proposed Procedures p Cardioversion 48163, I48.0(Not Applicable) - Bronson Brady MD Was Beta Rakan taken within 24 hours: Yes Was Clonidine taken within 24 hours: N/A Last intake: Intake Last Liquid Date 10/28/23 Last Liquid Time 21:30 Last Solid Date 10/28/23 Last Solid Time 21:30 Social No alcohol and No tobacco Exam alert, oriented x 3 and clear to auscultation bilaterally Irregular rate/rhythm Airway Submandibular: within normal limits Cervical ROM: within normal limits Mallampati: Class II Pulmonary None reported CV/HEM Atrial Fibrillation, Congestive Heart Failure and Hypertension Anesthetic Plan ASA status: 3 Anesthesia: MAC Medications/Allergies Home Medications Medication Instructions Recorded Confirmed Last Taken Type isosorbide mononitrate 30 mg 30 mg PO DAILY 06/26/21 10/29/23 10/29/23 08:30 History tablet,extended release 24 hr potassium chloride 10 mEq 10 meq PO DAILY 06/26/21 10/29/23 10/28/23 History tablet,extended release albuterol sulfate 90 mcg/actuation 90 mcg inhalation PRN PRN 03/18/23 10/29/23 0 10/26/23 History aerosol inhaler Shortness Of Breath Or Wheezing apixaban 5 mg tablet (Eliquis) 5 mg PO BID #60 tabs 04/07/23 10/29/23 10/29/23 08:30 Rx furosemide 40 mg tablet 40 mg PO DAILY 04/07/23 10/29/23 10/28/23 History toe alignment splint #1 ea 06/24/23 10/29/23 09/08/23 Rx carvedilol 25 mg tablet 25 mg PO BID #180 tabs 07/20/23 10/29/23 10/29/23 08:30 Rx amiodarone 400 mg tablet 200 mg (1/2 x 400 mg) PO DAILY #90 10/22/23 10/29/23 10/29/23 08:30 Rx tabs Allergies Allergy/AdvReac Type Severity Reaction Status Date / Time No Known Allergies Allergy Verified 10/27/23 10:25 Current Medications Generic Name Dose Route Start Last Admin Trade Name Freq PRN Reason Stop Dose Admin Sodium Chloride 1,000 mls @ 30 mls/hr 10/29/23 10:45 10/29/23 11:03 Sodium Chloride 0.9% IV 10/30/23 10:44 30 mls/hr .Q24H LULA Administration PFSH Anesthesia Medical History HTN (hypertension) Atrial fibrillation Congestive heart failure Surgical History History of knee surgery Family History Mother CAD (coronary artery disease) Father CAD (coronary artery disease) Social History Alcohol intake: never Substance/Drug Use: never Data Anesthesia Cardiac Studies: Echocardiogram 04/13/23 Holter Monitor 06/17/23
--- NOTE | 2023-10-29 12:01 | PM.HP ---
Providers/Chief Complaint Admitting Physician: Dr. SOL Brady Primary Care Provider: Eliecer Gaona Chief Complaint: I48.0 History of Present Illness Amrit Tomlin is a 68 year old male with a history of COPD, congestive heart failure and atrial fibrillation. Patient has symptomatic atrial fibrillation. We attempted cardioversion in the past. He was recently evaluated by counter professional. He is planning to do RF ablation. But prior to the ablation, Dr. Lopez wanted me to try cardioversion again with a higher joule. This procedure explained the patient in detail with the risk and benefits. The risk of developing malignant arrhythmia, aspiration and other concomitant complications explained in detail patient understood this well and consented to proceed. Review of Systems Narrative: CONSTITUTIONAL: No fever or chills. EYES: No blurring of vision or other visual disturbances lately. ENT: No hoarseness of voice, auditory disturbances or sore throat. CARDIOVASCULAR: As mentioned above. RESPIRATORY: No significant cough. History of COPD GASTROINTESTINAL: No hematemesis or melena. GENITOURINARY: No dysuria or hematuria. INTEGUMENTARY: No skin rashes or history of skin cancer. NEURO: No transient ischemic attacks or amaurosis. PSYCHIATRIC: No history of psychosis or major depression. HEMATOLOGIC: No bleeding disorders or significant anemia. ENDOCRINE: No history of polyuria or polydipsia. MUSCULOSKELETAL: No recent joint pain or swelling. ALLERGY/IMMUNOLOGY: As mentioned above. Medications/Allergies Home Medications Medication Instructions Recorded Confirmed Last Taken Type isosorbide mononitrate 30 mg 30 mg PO DAILY 06/26/21 10/29/23 10/29/23 08:30 History tablet,extended release 24 hr potassium chloride 10 mEq 10 meq PO DAILY 06/26/21 10/29/23 10/28/23 History tablet,extended release albuterol sulfate 90 mcg/actuation 90 mcg inhalation PRN PRN 03/18/23 10/29/23 10/26/23 History aerosol inhaler Shortness Of Breath Or Wheezing apixaban 5 mg tablet (Eliquis) 5 mg PO BID #60 tabs 04/07/23 10/29/23 10/29/23 08:30 Rx furosemide 40 mg tablet 40 mg PO DAILY 04/07/23 10/29/23 10/28/23 History toe alignment splint #1 ea 06/24/23 10/29/23 09/08/23 Rx carvedilol 25 mg tablet 25 mg PO BID #180 tabs 07/20/23 10/29/23 10/29/23 08:30 Rx amiodarone 400 mg tablet 200 mg (1/2 x 400 mg) PO DAILY #90 10/22/23 10/29/23 10/29/23 08:30 Rx tabs Allergies Allergy/AdvReac Type Severity Reaction Status Date / Time No Known Allergies Allergy Verified 10/27/23 10:25 PFSH Acute PFSH: Medical History HTN (hypertension) Atrial fibrillation Congestive heart failure Surgical History History of knee surgery Family History Mother CAD (coronary artery disease) Father CAD (coronary artery disease) Social History Alcohol intake: never Substance/Drug Use: never Vitals/I&O/Wt Last Vital Signs Temp 97.2 F L 10/29/23 10:51 Pulse 81 10/29/23 10:51 Resp 18 10/29/23 10:51 BP 139/107 10/29/23 10:51 Pulse Ox 93 10/29/23 10:51 O2 Del Method Room Air 10/29/23 10:51 Weight last 48 hrs Weight 198 lb 3.2 oz Physical Exam Narrative: GENERAL: The patient is alert and oriented times three. Not in any acute distress. HEENT: No significant pallor, icterus or lymphadenopathy.Oral cavity: There are no mucous membrane lesions. NECK: Trachea appears to be central. No masses noted. No JVD or thyromegaly appreciated. RESPIRATORY: Chest is symmetrical. No intercostals muscle retraction or any accessory muscle activation. There is no chest wall tenderness. Breath sounds are heard bilaterally. No rales or rhonchi heard. No evidence of any consolidation. BREASTS: Deferred. HEART: The heart sounds are normal. No S3 or S4. No significant murmurs. No pericardial rub ABDOMEN: No vessel pulsations or distention. No tenderness. No organomegaly appreciated. Bowel sounds are normally heard. : Deferred. RECTAL: Deferred. LYMPHATIC: No lymphadenopathy noted in the neck. EXTREMITIES: No edema or cyanosis. No clubbing. MUSCULOSKELETAL: No acute joint deformities or swelling SKIN: There are no significant rashes or ecchymosis NEUROPSYCHIATRIC: The patient is alert and oriented x3. Appears to be in a good mood. No tremors or rigidity noted. A&P Assessment and plan (1) Congestive heart failure: Qualifiers: Heart failure type: diastolic Heart failure chronicity: unspecified Qualified Code(s): I50.30 - Unspecified diastolic (congestive) heart failure (2) Atrial fibrillation: Qualifiers: Atrial fibrillation type: paroxysmal Qualified Code(s): I48.0 - Paroxysmal atrial fibrillation (3) HTN (hypertension): Qualifiers: Hypertension type: primary hypertension Qualified Code(s): I10 - Essential (primary) hypertension Plan Electrical cardioversion today Risks and benefits were explained in detail with the patient and his detail which they understood well and consented to proceed. Attestations Medical Necessity Statement*: Possible discharge home after the procedure Coding Level of Care Code 98517 Diagnoses Diastolic congestive heart failure, unspecified HF chronicity I50.30 Heart failure type: diastolic Heart failure chronicity: unspecified Paroxysmal atrial fibrillation I48.0 Atrial fibrillation type: paroxysmal Primary hypertension I10 Hypertension type: primary hypertension
--- NOTE | 2023-10-29 12:06 | W.PM.OPSUD ---
Surgery/Procedure H&P Update DATE OF PROCEDURE: October 29, 2023 DATE H&P PERFORMED: 10/29/23 H&P UPDATE INFORMATION: I have reviewed H&P completed within last 30 days, I have examined patient prior to procedure and No changes to prior documentation PREOP DIAGNOSIS: Symptomatic atrial fibrillation PRIMARY INDICATION FOR PROCEDURE: Same as above PLANNED PROCEDURE: Operation Date: 10/29/23 12:00 Proposed Procedures p Cardioversion 56098, I48.0(Not Applicable) - Bronson Brady MD
[2023-10-29 12:26] VITALS: BP 113/69; PULSE 50; RESP 14; TEMP 36.3; O2SAT 96
--- NOTE | 2023-10-29 12:34 | PM.OP ---
Operative Report Date of procedure: October 29, 2023 Surgeon: Bronson Brady MD Procedure: Electrical cardioversion report Preprocedure diagnoses: Symptomatic /Atrial fibrillation Brief history: 68-year-old with a history of hypertension, atrial fibrillation and congestive heart failure was previously cardioverted with up to 200 J of biphasic current. Apparently that was the maximum output available on that machine. The patient was brought back to do cardioversion with a higher joules using a different machine Location of the procedure: Surgical suite Electrode application: Anteroposterior Electrical energy applied: 250 J, 300 J, biphasic Number of shocks: Total of 2 Final rhythm: Sinus bradycardia with heart rate in the 50s Final blood pressure: 128/72 Complications: None Recommendation(s): Continue on the current medications may consider cutting back on the carvedilol, if the heart rate goes below 50
[2023-10-29 12:35] VITALS: BP 89/60; PULSE 45; RESP 16; O2SAT 95
[2023-10-29 12:45] VITALS: BP 105/65; PULSE 45; RESP 18; O2SAT 95
--- NOTE | 2023-10-29 12:49 | ECG_ITS ---
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 Measurements Intervals [place] Rate: 47 P: 101 PA: 227 QRS: -10 QRSD: 94 T: 3 QT: 479 QTc: 425 Interpretive Statements SINUS BRADYCARDIA WITH FIRST DEGREE AV BLOCK WITH OCCASIONAL SUPRAVENTRICULAR PREMATURE COMPLEXES NONSPECIFIC T-WAVE ABNORMALITY Compared to ECG 10/29/2023 10:37:54 First degree AV block now present T-wave abnormality now present Atrial fibrillation no longer present Electronically Signed On 10-29-2023 19:16:51 CDT by Bronson Brady M.D. [id number]
[2023-10-29 13:04] VITALS: BP 102/74; PULSE 47; RESP 18; O2SAT 96
== END 2023-10-29 13:24 | disposition home or self-care (01) ==
PROVIDERS: PCP Family Medicine; Visit Provider Internal Medicine Cardiovascular Disease
PROC: 5A2204Z Restoration of Cardiac Rhythm, Single (ICD-10-PCS; principal; 2023-10-29 12:00)
DX: I48.91 Unspecified atrial fibrillation (principal); I11.0 Hypertensive heart disease with heart failure; I50.9 Heart failure, unspecified; J44.9 Chronic obstructive pulmonary disease, unspecified
CPT/HCPCS: 92960; 93005; J2704; J7030

== ENCOUNTER → 2023-11-10 09:50 | Outpatient (BNVA) | payer MEDICARE, SELFPAY | PROVIDERS: PCP Family Medicine; Visit Provider Internal Medicine Cardiovascular Disease | DX: I48.0 Paroxysmal atrial fibrillation (principal); Z79.01 Long term (current) use of anticoagulants; I11.0 Hypertensive heart disease with heart failure; I50.30 Unspecified diastolic (congestive) heart failure; I42.8 Other cardiomyopathies; R00.1 Bradycardia, unspecified | CPT/HCPCS: 99214 ==

== ENCOUNTER → 2024-07-14 10:53 | Outpatient (BNVA) | payer MEDICARE, SELFPAY | PROVIDERS: PCP Family Medicine; Visit Provider Nurse Practitioner Family | DX: Z12.5 Encounter for screening for malignant neoplasm of prostate (principal); I10 Essential (primary) hypertension; I48.0 Paroxysmal atrial fibrillation; I50.30 Unspecified diastolic (congestive) heart failure; T14.8XXA Other injury of unspecified body region, initial encounter | CPT/HCPCS: 36415; 80053; 80061; 85025; 93005; 99214; G0103 ==

== ENCOUNTER → 2025-01-30 15:24 | Outpatient (BNVA) | payer MEDICARE, SELFPAY | PROVIDERS: PCP Family Medicine; Visit Provider Internal Medicine Cardiovascular Disease | DX: I48.91 Unspecified atrial fibrillation (principal); Z79.01 Long term (current) use of anticoagulants; I11.0 Hypertensive heart disease with heart failure; I50.30 Unspecified diastolic (congestive) heart failure; R00.1 Bradycardia, unspecified; Z87.891 Personal history of nicotine dependence | CPT/HCPCS: 99214 ==